=== PATIENT | female | born 1995 | race African-American/Black ===

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

== ENCOUNTER 2017-01-20 12:54 | Emergency (ER) | payer OTHER ==
--- NOTE | 2017-01-20 14:34 | PD ---
HPI Chief Complaint Abdominal pain Date Seen: Jan 20, 2017 Time Seen: 14:20 Travel History International Travel<30 Days: No Contact w/Intl Traveler<30Days: No Known Affected Area: No History of Present Illness HPI 22-year-old 1 para 0 at 37+ weeks gestation who comes today complaining of right abdominal pain. Patient indicates an area of maximal tenderness in the right lower quadrant. She denies any contractions, bleeding or vaginal discharge or fluid leakage. She has had no fever, nausea vomiting or change in bowel habits. No dysuria hematuria or frequency. She has not found any aggravating maneuvers nor has she found any alleviating components. She has taken no medication for this. Weeks Gestation: 37 Para: 0 : 1 History Past Medical History Medical History: Denies Significant Hx Obstetric History Obstetric History Primigravida This has been complicated by syphilis for which she has received treatment through the [facility]. Past Surgical History Surgical History: No Previous Surgery Family History Family History: positive for hypertension and diabetes in her parents Social History Alcohol Use: No Tobacco Use: No Substance Abuse: No Allergies-Medications (Allergen,Severity, Reaction): Coded Allergies: bee venom protein (honey bee) (Unverified Allergy, Mild, RASH, 01/08/17) Home Meds Active Scripts Lidocaine-Hydrocortisone 2.8-0.55% Topical (Lidocaine-Hydrocortisone 2.8-0.55% Topical) 1 Gel, 1 APPLIC EXTERNAL QID, #1 TUBE Prov:Deacon Malone MD R1 12/18/16 Vit W/ Ferric Phospha (Vitafol Gummies 3.33-0.333-34.8 mg) 1 Chw Chw, 1 CHEW PO DAILY, #60 BOTTLE 2 Refills Prov:Gely Miranda CNM SENIOR TECHNICAL MANAGER 10/09/16 Review of Systems Except as stated in HPI: all other systems reviewed are Neg Physical Exam Narrative GENERAL: Well-nourished, well-developed patient. SKIN: Warm and dry. HEAD: Normocephalic and atraumatic. EYES: No scleral icterus. No injection or drainage. ENT: No nasal drainage noted. Mucous membranes pink. Airway patent. NECK: Supple, trachea midline. No JVD. CARDIOVASCULAR: Regular rate and rhythm without murmurs, gallops, or rubs. RESPIRATORY: Breath sounds equal bilaterally. No accessory muscle use. BREASTS: Bilateral exam showed no masses , no retractions, no nipple discharge. ABDOMEN/GI: Abdomen soft, non-tender, bowel sounds present, no rebound, no guarding Gravid to [-] weeks size Fundal Height: [-40] GENITOURINARY: External Genitalia: intact and normal in appearance BUS glands: [-] Cervix: [-] Dilatation: [-Closed] Effacement: [50-] Station: [-2-] Presentation: [Vertex-] Membranes: [intact] Uterine Contractions: [None-] FHT's: Category: [-] Baseline: [-] Reactive: [Yes-] Variability: [-] Decels: [-] EXTREMITIES: No cyanosis or edema. BACK: Nontender without obvious deformity. No CVA tenderness. NEUROLOGICAL: Awake and alert. Motor and sensory grossly within normal limits. Five out of 5 muscle strength in all muscle groups. Normal speech. Data Data Vital Signs Reviewed: Yes MDM Medical Record Reviewed: Yes Narrative Course / MDM Assessment: 37+ week intrauterine with related discomfort without evidence of acute abdomen Plan: Follow for routine care. Diagnosis Diagnosis: Primary Impression: 37 weeks gestation of Additional Impression: Pelvic pain during in third trimester, antepartum Disposition: 01 DISCHARGE HOME Condition: Good Layton Rowland MD Jan 20, 2017 14:34
[2017-02-13] MEDS ORDERED: METR500T10 PO (15:09)
== END 2017-01-20 15:04 | disposition home or self-care (01) ==
LOC: HOBED 12:54
DX: R10.2 Pelvic and perineal pain (principal); Z3A.37 37 weeks gestation of pregnancy
CPT/HCPCS: 99283

== ENCOUNTER 2017-01-24 17:45 | Emergency (ER) | payer OTHER ==
--- NOTE | 2017-01-24 19:06 | PD ---
HPI Chief Complaint Ctx Travel History International Travel<30 Days: No Contact w/Intl Traveler<30Days: No Known Affected Area: No History of Present Illness HPI 22-year-old , IUP at 37.6 care complicated by obesity, scant care Patient presents to the OB ED complaining of painful contractions that started 1 hour ago. She reports that she just recently had intercourse. She denies any LOF or VB. She is unsure how often she is antonio as she has not been timing them. She reports good movement. She reports that she is not been off to the office for several weeks. She reports that she was seen here 4 days ago and her cervical exam was closed. Weeks Gestation: 37 Para: 0 : 1 History Past Medical History Narrative Medical Obesity Obstetric History Obstetric History 1 para 0 Past Surgical History Narrative Surgical Denies Family History Family History: Negative Social History Alcohol Use: No Tobacco Use: No Substance Abuse: No Allergies-Medications (Allergen,Severity, Reaction): Coded Allergies: bee venom protein (honey bee) (Unverified Allergy, Mild, RASH, 01/08/17) Home Meds Active Scripts Lidocaine-Hydrocortisone 2.8-0.55% Topical (Lidocaine-Hydrocortisone 2.8-0.55% Topical) 1 Gel, 1 APPLIC EXTERNAL QID, #1 TUBE Prov:Deacon Malone MD R1 12/18/16 Vit W/ Ferric Phospha (Vitafol Gummies 3.33-0.333-34.8 mg) 1 Chw Chw, 1 CHEW PO DAILY, #60 BOTTLE 2 Refills Prov:Gely Miranda CNM SHIP RIGGER APPRENTICE 10/09/16 Review of Systems Except as stated in HPI: all other systems reviewed are Neg Physical Exam Narrative GENERAL: Well-nourished, well-developed patient. SKIN: Warm and dry. HEAD: Normocephalic and atraumatic. EYES: No scleral icterus. No injection or drainage. ENT: No nasal drainage noted. Mucous membranes pink. Airway patent. NECK: Supple, trachea midline. No JVD. CARDIOVASCULAR: Regular rate and rhythm without murmurs, gallops, or rubs. RESPIRATORY: Breath sounds equal bilaterally. No accessory muscle use. BREASTS: Bilateral exam showed no masses , no retractions, no nipple discharge. ABDOMEN/GI: Abdomen soft, non-tender, bowel sounds present, no rebound, no guarding Gravid GENITOURINARY: External Genitalia: intact and normal in appearance. Normal BUS. No cervical or vaginal masses were noted. Normal rugated physiologic discharge were noted. Cervical exam 1/thick/high/posterior. Membranes are intact. On toco irregular contractions are noted FHT's: Category: FHR is category 1 tracing with reactive NST. Baseline 140s-150s with good accelerations noted no decelerations noted and moderate long-term variability EXTREMITIES: No cyanosis or edema. BACK: Nontender without obvious deformity. No CVA tenderness. NEUROLOGICAL: Awake and alert. Motor and sensory grossly within normal limits. Five out of 5 muscle strength in all muscle groups. Normal speech. Site: Grossly normal memory and affect Musculoskeletal: Grossly normal muscle strength, gait, and range of motion MDM Plan Assessment/plan: 1. IUP at 37.6 2. Contractions at term: No evidence of active labor with irregular contractions noted and cervical exam 1 thick and high strict labor precautions are given 3. Reassuring well-being: Reassuring testing was noted with a reactive NST and category 1 heart rate tracing. FHR was reassuring and appropriate for gestational age. FKC daily 4. Lapse of PNC: recommend f/u in 1-2d or sooner if needed 5. Obesity 6. F/U with primary Ob in 1-2d Diagnosis Diagnosis: Primary Impression: 37 weeks gestation of Additional Impression: False labor before 37 completed weeks of gestation Disposition: 01 DISCHARGE HOME Condition: Good Patient Instructions: Movement (ED), Early Labor Signs (ED) Tatyana Echevarria MD Jan 24, 2017 19:06
[2017-02-13] MEDS ORDERED: METR500T10 PO (15:09)
== END 2017-01-24 19:28 | disposition home or self-care (01) ==
LOC: HOBED 17:45
DX: O47.1 False labor at or after 37 completed weeks of gestation (principal); O99.213 Obesity complicating pregnancy, third trimester; Z3A.37 37 weeks gestation of pregnancy
CPT/HCPCS: 99283

== ENCOUNTER 2017-02-01 18:09 | Emergency (ER) | payer OTHER ==
--- NOTE | 2017-02-01 18:52 | PD ---
HPI Chief Complaint Contractions 1 hour Date Seen: Feb 01, 2017 Time Seen: 18:30 Travel History International Travel<30 Days: No Contact w/Intl Traveler<30Days: No Known Affected Area: No History of Present Illness HPI 22-year-old primigravida at 39 weeks gestation who reports having contractions for 1 hour. She denies any leakage of fluid, bleeding or vaginal discharge. She denies headache, visual change or abdominal pain. No significant change in her swelling. Weeks Gestation: 39 Para: 0 : 1 History Past Medical History Narrative Medical Treated for secondary syphilis this Obstetric History Obstetric History Primigravida, this , complicated by syphilis and infrequent care. Past Surgical History Surgical History: No Previous Surgery Family History Family History: Negative Social History Alcohol Use: No Tobacco Use: No Substance Abuse: No Allergies-Medications (Allergen,Severity, Reaction): Coded Allergies: bee venom protein (honey bee) (Unverified Allergy, Mild, RASH, 01/08/17) Home Meds Active Scripts Lidocaine-Hydrocortisone 2.8-0.55% Topical (Lidocaine-Hydrocortisone 2.8-0.55% Topical) 1 Gel, 1 APPLIC EXTERNAL QID, #1 TUBE Prov:Deacon Malone MD R1 12/18/16 Vit W/ Ferric Phospha (Vitafol Gummies 3.33-0.333-34.8 mg) 1 Chw Chw, 1 CHEW PO DAILY, #60 BOTTLE 2 Refills Prov:Gely Miranda CNM GENERATION MECHANIC HELPER 10/09/16 Review of Systems Except as stated in HPI: all other systems reviewed are Neg Physical Exam Narrative GENERAL: Well-nourished, well-developed patient. SKIN: Warm and dry. HEAD: Normocephalic and atraumatic. EYES: No scleral icterus. No injection or drainage. ENT: No nasal drainage noted. Mucous membranes pink. Airway patent. NECK: Supple, trachea midline. No JVD. CARDIOVASCULAR: Regular rate and rhythm without murmurs, gallops, or rubs. RESPIRATORY: Breath sounds equal bilaterally. No accessory muscle use. ABDOMEN/GI: Abdomen soft, non-tender, bowel sounds present, no rebound, no guarding Gravid to [-] weeks size Fundal Height: [-40] GENITOURINARY: External Genitalia: intact and normal in appearance BUS glands: [Negative-] Cervix: [-] Dilatation: [1-] Effacement: [-50] Station: [-2-] Presentation: [Vertex-] Membranes: [intact ] Uterine Contractions: [-Rare] FHT's: Category: [-1] Baseline: [-] Reactive: [Yes-] Variability: [-] Decels: [-] EXTREMITIES: No cyanosis or edema. BACK: Nontender without obvious deformity. No CVA tenderness. NEUROLOGICAL: Awake and alert. Motor and sensory grossly within normal limits. Five out of 5 muscle strength in all muscle groups. Normal speech. Data Data Vital Signs Reviewed: Yes Labs Urine dipstick trace proteinuria MDM Medical Record Reviewed: Yes Narrative Course / MDM Assessment: 39 week primigravida not in labor, isolated elevated blood pressure without other features of preeclampsia. Recheck blood pressure is normal. Plan: Labor precautions were reviewed. Patient was strongly encouraged follow- up for care visits which she has been poorly compliant with. Diagnosis Diagnosis: Primary Impression: 39 weeks gestation of Additional Impression: Irregular uterine contractions Disposition: DISCHARGE HOME Condition: Good Layton Rowland MD Feb 01, 2017 18:52
[2017-02-13] MEDS ORDERED: METR500T10 PO (15:09)
== END 2017-02-01 19:25 | disposition home or self-care (01) ==
LOC: HOBED 18:09
DX: O47.1 False labor at or after 37 completed weeks of gestation (principal); Z3A.39 39 weeks gestation of pregnancy
CPT/HCPCS: 59025

== ENCOUNTER 2017-02-15 20:28 | Inpatient (IN) | payer OTHER ==
[~2017-02-15] VITALS: Ht 175.3 cm; Wt 124.0 kg
[~2017-02-15 20:28] MED LIST changes: +METR500T10 PO
--- NOTE | 2017-02-15 20:50 | HHI.HP ---
HPI Chief Complaint Induction Date Seen: Feb 15, 2017 Travel History International Travel<30 Days: No Contact w/Intl Traveler<30Days: No History of Present Illness HPI Mrs. Nazario is a 22 y/o at 41/0 presenting for her scheduled induction. Patient endorses good movement and denies any vaginal bleeding, discharge , or fluid loss. She has been seen by the [facility] for her care which she reports has been uncomplicated. She was seen on 02/13 in the office and was treated for BV with Flagyl 1g daily for 2 days which she did not complete. She has been previously been treated for syphilis at [facility] on . Of note, per chart review patient has unknown GBS status. Weeks Gestation: 41 Para: 0 : 1 History Past Medical History Narrative Medical Anemia - on iron Medical History: Denies Significant Hx Obstetric History Obstetric History Past Surgical History Surgical History: No Previous Surgery Family History Family History: Negative Social History Alcohol Use: No Tobacco Use: No Substance Abuse: No Allergies-Medications (Allergen,Severity, Reaction): Coded Allergies: bee venom protein (honey bee) (Unverified Allergy, Mild, RASH, 02/13/17) Home Meds Active Scripts Metronidazole (Metronidazole) 500 Mg Tab, 1000 MG PO DAILY for Infection for 2 Days, #8 TAB 0 Refills Prov:Dillon Adorno MD 02/13/17 Lidocaine-Hydrocortisone 2.8-0.55% Topical (Lidocaine-Hydrocortisone 2.8-0.55% Topical) 1 Gel, 1 APPLIC EXTERNAL QID, #1 TUBE Prov:Deacon Malone MD R1 12/18/16 Vit W/ Ferric Phospha (Vitafol Gummies 3.33-0.333-34.8 mg) 1 Chw Chw, 1 CHEW PO DAILY, #60 BOTTLE 2 Refills Prov:Gely Miranda CNM 10/09/16 Review of Systems Except as stated in HPI: all other systems reviewed are Neg Physical Exam Narrative GENERAL: Well-nourished, well-developed patient. SKIN: Warm and dry. HEAD: Normocephalic and atraumatic. EYES: No scleral icterus. No injection or drainage. ENT: No nasal drainage noted. Mucous membranes pink. Airway patent. NECK: Supple, trachea midline. No JVD. CARDIOVASCULAR: Regular rate and rhythm without murmurs, gallops, or rubs. RESPIRATORY: Breath sounds equal bilaterally. No accessory muscle use. ABDOMEN/GI: Abdomen soft, non-tender, bowel sounds present, no rebound, no guarding Gravid to 41 GENITOURINARY: External Genitalia: intact and normal in appearance Cervix: [-] Dilatation: [-] Effacement: [-] Station: [-] Presentation: [-] Membranes: [intact or ruptured] Uterine Contractions: [-] FHT's: Category: [-] Baseline: [-] Reactive: [-] Variability: [-] Decels: [-] EXTREMITIES: No cyanosis or edema. BACK: Nontender without obvious deformity. No CVA tenderness. NEUROLOGICAL: Awake and alert. Motor and sensory grossly within normal limits. Five out of 5 muscle strength in all muscle groups. Normal speech. Caprini VTE Risk Assessment Caprini VTE Risk Assessment: Mod/High Risk (score >= 2) Caprini Risk Assessment Model Point Value = 1 Point Value = 2 Point Value = 3 Point Value = 5 Age 41-60 Minor surgery BMI > 25 kg/m2 Swollen legs Varicose veins or History of unexplained or recurrent spontaneous Oral contraceptives or hormone replacement Sepsis (< 1 month) Serious lung disease, including pneumonia (< 1 month) Abnormal pulmonary function Acute myocardial infarction Congestive heart failure (< 1 month) History of inflammatory bowel disease Medical patient at bed rest Age 61-74 Arthroscopic surgery Major open surgery (> 45 min) Laparoscopic surgery (> 45 min) Malignancy Confined to bed (> 72 hours) Immobilizing plaster cast Central venous access Age >= 75 History of VTE Family history of VTE Factor V Leiden Prothrombin [id number] Lupus anticoagulant Anticardiolipin antibodies Elevated serum homocysteine Heparin-induced thrombocytopenia Other congenital or acquired thrombophilia Stroke (< 1 month) Elective arthroplasty Hip, pelvis, or leg fracture Acute spinal cord injury (< 1 month) Prophylaxis Regimen Total Risk Factor Score Risk Level Prophylaxis Regimen 0-1 Low Early ambulation 2 Moderate Order ONE of the following: *Sequential Compression Device (SCD) *Heparin 5000 units SQ BID 3-4 Higher Order ONE of the following medications: *Heparin 5000 units SQ TID *Enoxaparin/Lovenox 40 mg SQ daily (WT < 150 kg, CrCl > 30 mL/min) *Enoxaparin/Lovenox 30 mg SQ daily (WT < 150 kg, CrCl > 10-29 mL/min) *Enoxaparin/Lovenox 30 mg SQ BID (WT < 150 kg, CrCl > 30 mL/min) AND/OR *Sequential Compression Device (SCD) 5 or more Highest Order ONE of the following medications: *Heparin 5000 units SQ TID (Preferred with Epidurals) *Enoxaparin/Lovenox 40 mg SQ daily (WT < 150 kg, CrCl > 30 mL/min) *Enoxaparin/Lovenox 30 mg SQ daily (WT < 150 kg, CrCl > 10-29 mL/min) *Enoxaparin/Lovenox 30 mg SQ BID (WT < 150 kg, CrCl > 30 mL/min) AND *Sequential Compression Device (SCD) Data Data Vital Signs Reviewed: Yes Assessment/Plan Problem List: (1) 41 weeks gestation of ICD Codes: Z3A.41 - 41 weeks gestation of Status: Acute Assessment and Plan Mrs. Nazario is a 22 y/o at 41/0 presenting for her scheduled induction 1. IUP at 41 weeks -Continue routine antepartum care -Encourage oral hydration -Continue vitamin -Patient admitted for scheduled induction, orders placed -Plan to start Cytotec overnight and transition to Oxytocin 2. GBS Unknown -Rapid GBS: ordered -NKDA 3. BV -Flagyl 500mg BID 4. Anemia -Patient reports she is on oral iron -H/H: pending 5. History of Syphilis -Patient with positive RPR and titer during -Patient treated by [facility] per patient and chart review -Nursery to be notified on delivery SDW: Dr. Trimble Discharge Planning Pending Clinical Course Uriah Kelsey MD R2 Feb 15, 2017 20:50
[2017-02-15] MEDS ORDERED: SODIUM CHLOR 0.9% 1000 ML INJ 1,000 ML OTHER PRN (21:08)
[2017-02-15] MEDS ORDERED: LACTATED RINGER'S 1000 ML INJ 1,000 ML IV PRN (21:08)
[2017-02-15] MEDS ORDERED: LIDOCAINE HCL 1% 50 ML VIAL INFIL PRN (21:15)
[2017-02-15] MEDS: SODIUM CHLORIDE 0.9% FLUSH 10 ML FLUSH IV FLUSH SCH (21:15)
[2017-02-15] MEDS ORDERED: LIDOCAINE HCL 1% 50 ML VIAL I-DERMAL PRN (21:15)
[2017-02-15] MEDS ORDERED: SODIUM CHLORID 0.9% 500 ML INJ 500 ML IV PRN (21:15)
[2017-02-15] MEDS ORDERED: MISOPROSTOL 25 MCG SUPP VAGINAL ONE (21:15)
[2017-02-15] MEDS ORDERED: CITRIC ACID-SODIUM CITRATE LIQ 30 ML UDC PO SCH (21:15)
[2017-02-15] MEDS ORDERED: MINERAL OIL 10 ML VIAL TOPICAL PRN (21:15)
[2017-02-15] MEDS ORDERED: SODIUM CHLORIDE 0.9% FLUSH 10 ML FLUSH IV FLUSH PRN (21:15)
[2017-02-15] MEDS ORDERED: OXYTOCIN 30 UNITS-500ML PREMIX 500 ML IV ONE (21:15)
[2017-02-15] MEDS ORDERED: ONDANSETRON HCL 4 MG/2 ML VIAL IV PRN (21:15)
[2017-02-15] MEDS ORDERED: SODIUM CHLOR 0.9% 1000 ML INJ 1,000 ML IV PRN (21:28)
[2017-02-15 22:09] LABS: BLOOD, URINE NEG (NEG); COMMENT (UR) CULT NOT INDICATED; CULTURE IF INDICATED CULT NOT INDICATED; GLUCOSE,URINE NEG (NEG); KETONE, URINE NEG (NEG); NITRITE,URINE NEG (NEG); SQUAMOUS EPITHELIAL CELL URINE 4 /hpf (0-5); URINE COLOR YELLOW (YELLW/STRAW)
[2017-02-15 22:20] LABS: BASOPHIL # 0.1 TH/MM3 (0-0.2); BASOPHIL % 0.6 % (0.0-2.0); EOSINOPHIL # 0.2 TH/MM3 (0-0.4); EOSINOPHIL % 1.7 % (0.0-4.0); HEMATOCRIT 33.6 % (35.0-46.0); HEMO FLAGS DIFF FINAL; LYMPH % 19.5 % (9.0-44.0); LYMPHOCYTE # 2.7 TH/MM3 (1.0-4.8); MEAN CELL VOLUME 73.9 FL (80.0-100.0); MEAN CORPUSCULAR HEMOGLOBIN 22.3 PG (27.0-34.0); MEAN CORPUSCULAR HGB CONC 30.2 % (32.0-36.0); NEUT % 73.2 % (16.0-70.0); PLATELET COUNT 216 TH/MM3 (150-450); RED BLOOD COUNT 4.55 MIL/MM3 (4.00-5.30); RED CELL DISTRIBUTION WIDTH 21.2 % (11.6-17.2); WHITE BLOOD COUNT 13.7 TH/MM3 (4.0-11.0)
[2017-02-15] MEDS: metroNIDAZOLE 500 MG TAB PO SCH (22:24)
[2017-02-15] MEDS: LACTATED RINGER'S 1000 ML INJ 1,000 ML IV SCH (22:24)
[2017-02-16] MEDS: MISOPROSTOL 25 MCG SUPP VAGINAL PRN ×2 (02:36→06:43)
--- NOTE | 2017-02-16 09:18 | PD.LABORPN ---
Subjective Subjective AROM -clear IUPC /FSE inserted cx 1-2/40/-3/vtx [ by US] FHR reactive CTXs seen continue induction for postdates Objective Objective Pelvic Exam: Cervix: [-] Dilatation: [-] Effacement: [-] Station: [-] Presentation: [-] Membranes: [intact or ruptured] Uterine Contractions: [-] FHT's: Category: [-] Baseline: [-] Reactive: [-] Variability: [-] Decels: [-] Weeks Gestation: 41 Gest Age Assessed Date: Feb 15, 2017 Gest Age Assessed Time: 18:00 Pt started active labor?: No Medical induction of labor?: Yes Medical induction start date: Feb 15, 2017 Medical induction start time: 18:00 Artificial rupture of membrane: Yes Artificial ROM date: Feb 16, 2017 Artifical ROM time: 09:00 Assessment/Plan Problem List: (1) 41 weeks gestation of ICD Codes: Z3A.41 - 41 weeks gestation of Status: Acute Cortez Trimble II, MD Feb 16, 2017 09:18
[2017-02-16] MEDS: metroNIDAZOLE 500 MG TAB PO SCH ×2 (09:34→21:50)
[2017-02-16] MEDS ORDERED: LACTATED RINGER'S 1000 ML INJ 1,000 ML IV ONE (12:00)
[2017-02-16] MEDS ORDERED: PHENYLEPH/NS 1000 MCG/10 ML SYR IV ONE (12:00)
[2017-02-16] MEDS ORDERED: LIDOCAINE 2%/EPINEPHrine PF 1:200,000 20ML SDV INFIL ONE (12:00)
[2017-02-16] MEDS ORDERED: ONDANSETRON HCL 4 MG/2 ML VIAL IV PUSH ONE (12:00)
[2017-02-16] MEDS ORDERED: MORPHINE SULFATE PF 5 MG/10 ML VIAL EPIDURAL ONE (12:00)
[2017-02-16] MEDS ORDERED: OXYTOCIN 10 UNIT/ML AMP IV ONE (12:00)
[2017-02-16] MEDS: LACTATED RINGER'S 1000 ML INJ 1,000 ML IV SCH ×3 (12:51→21:51)
--- NOTE | 2017-02-16 13:03 | PD.LABORPN ---
Subjective Subjective Patient is reporting painful contractions Objective Objective Pelvic Exam: SVE 2-3/90/-2 FHT's: The patient and her 140s with moderate long-term variability good accelerations and no repetitive decelerations although the patient is having some early's and an occasional mild variable, overall reassuring heart rate tracing Candor: Every 2-3 minutes Weeks Gestation: 41 Gest Age Assessed Date: Feb 16, 2017 Gest Age Assessed Time: 12:58 Pt started active labor?: Yes Active labor start date: Feb 16, 2017 Active labor start time: 12:58 Medical induction of labor?: Yes Medical induction start date: Feb 15, 2017 Medical induction start time: 20:00 Artificial rupture of membrane: Yes Artificial ROM date: Feb 16, 2017 Artifical ROM time: 09:15 Assessment/Plan Problem List: (1) 41 weeks gestation of ICD Codes: Z3A.41 - 41 weeks gestation of Status: Acute Assessment and Plan Assessment/plan: 1. IUP at 41.1 2. Induction of labor: Status post Cytotec, now on oxytocin 3. Overall reassuring heart tracing 4. GBS unknown Tatyana Echevarria MD Feb 16, 2017 13:03
[2017-02-16] MEDS ORDERED: fentaNYL 2MCG-BUPIV 0.125% INJ 100 ML ONE (14:18)
[2017-02-16] MEDS ORDERED: NO SYSTEM NARCOTICS PRN (15:00)
[2017-02-16] MEDS ORDERED: ePHEDrine/NS 25 MG/5 ML SYR IV PRN (15:00)
[2017-02-16] MEDS ORDERED: fentaNYL 2MCG-BUPIV 0.125% 100 ML EPIDURAL SCH (15:00)
[2017-02-16] MEDS ORDERED: DO NOT ADMINISTER ANTICOAGULANTS PRN (15:00)
[2017-02-16] MEDS ORDERED: TERBUTALINE INJ 1 MG/ML AMP ONE (15:41)
[2017-02-16] MEDS ORDERED: PENICILLIN G POTASSIUM INJ 5,000,000 UNITS in SODIUM CHLORIDE 0.9% INJ 100 ML IV ONE (18:15)
[2017-02-16] MEDS ORDERED: OXYTOCIN 30 UNITS-500ML PREMIX 500 ML IV SCH (19:30)
[2017-02-16] MEDS: SODIUM CHLORIDE 0.9% FLUSH 10 ML FLUSH IV FLUSH SCH (19:32)
[2017-02-16] MEDS ORDERED: ACETAMINOPHEN 1000 MG/100 ML 100 ML IV ONE (22:06)
--- NOTE | 2017-02-16 22:07 | HHI.PR ---
Subjective Remarks The patient is a 22-year-old with intrauterine at 41 weeks who presented for induction of labor. She has a history of syphilis. She underwent AROM this morning by Dr. Trimble at 1 cm 40% effaced and -3 station she progressed to 3-4 cm with adequate contractions but has had no further cervical change despite an adequate time period and augmentation with oxytocin. Also of note she has had 2 episodes of heart rate decelerations that spontaneously resolved. She is remote from delivery with currently reassuring heart rate tracing. The patient is in agreement with proceeding with delivery for failure to progress/arrest of dilation. This benefits alternatives to delivery were discussed with risks discussed including but not limited to pain, infection, bleeding, bleeding that might require blood transfusion or hysterectomy, need for repeat operation, injury to other organs like the bladder/bowel/nerves/vessels, injury to the baby, wound infection or breakdown, and other potential risks. The patient is in agreement, consent has been signed, and we will proceed. Objective Vital Signs Date Time Temp Pulse Resp B/P (MAP) Pulse Ox O2 Delivery O2 Flow Rate FiO2 02/16/17 20:51 16 Result Diagram: 02/15/17 2130 Tatyana Echevarria MD Feb 16, 2017 22:07
[2017-02-16] MEDS ORDERED: ceFAZolin INJ 1,000 MG VIAL ONE (22:09)
[2017-02-16] MEDS ORDERED: ceFAZolin 3,000 MG/NS 100 ML IV SCH ×2 (22:30)
[2017-02-16] MEDS ORDERED: METHYLERGONOVINE MALEATE 0.2 MG/ML VIAL ONE (22:50)
[2017-02-16] MEDS ORDERED: PENICILLIN G POTASSIUM INJ 2,500,000 UNITS in SODIUM CHLORIDE 0.9% INJ 100 ML IV SCH (23:00)
[2017-02-16] MEDS ORDERED: ceFAZolin 2 GM PREMIX 50 ML IV SCH (23:15)
[2017-02-16] MEDS ORDERED: MISOPROSTOL 200 MCG TAB ONE (23:17)
[2017-02-16] MEDS ORDERED: OXYTOCIN 30 UNITS-500ML PREMIX 500 ML ONE (23:26)
[2017-02-16] MEDS ORDERED: CITRIC ACID-SODIUM CITRATE LIQ 30 ML UDC PO SCH (23:45)
[2017-02-17] MEDS ORDERED: SODIUM CHLORIDE 0.9% FLUSH 10 ML FLUSH IV FLUSH PRN (00:45)
[2017-02-17] MEDS ORDERED: OXYTOCIN 30 UNITS-500ML PREMIX 500 ML IV ONE (00:45)
[2017-02-17] MEDS ORDERED: ACETAMINOPHEN 1000 MG/100 ML 100 ML IV ONE (00:45)
[2017-02-17] MEDS ORDERED: ZOLPIDEM TARTRATE 5 MG TAB PO PRN (00:45)
[2017-02-17] MEDS ORDERED: ACETAMINOPHEN 325 MG TAB PO PRN (00:45)
[2017-02-17] MEDS ORDERED: ONDANSETRON HCL 4 MG/2 ML VIAL IV PUSH PRN (00:45)
[2017-02-17] MEDS ORDERED: SIMETHICONE 80 MG CHEWABLE TAB PO PRN (00:45)
--- NOTE | 2017-02-17 01:29 | PD.OB.DELI ---
Procedure Note Section Procedure Performed by Tatyana Echevarria Procedure: Primary Low Transverse Sec Indication for delivery: Other (failure to progress, arrest of dilation) Previous condition: None Informed consent obtained: For anesthesia, For procedure Confirmed correct: Patient, Procedure, Site, Time-out taken Anesthesia: Epidural Medication prior to procedure: As documented in eMAR Monitoring during procedure: Blood pressure monitoring, manager leasing, doppler, monitor, Pulse oximetry Urinary catheter: Inserted using sterile technique, To dependent drainage, ml urine output (250cc clear) Sterile preparation: Other (ChloraPrep) Position: Supine with wedge to left side Operative Features Skin Incision: Pfannenstiel Uterine Incision: Low transverse w/knife / blunt ext Membranes Ruptured: Previously Presentation: Occiput posterior Delivery date: Feb 16, 2017 Delivery time: 22:38 Delivery of : Uneventful : Male One Minute : 8 Five Minute : 9 Weight: 3200 Status of : Viable, Cord blood Placenta delivered: Intact Medications: Antibiotics, Oxytocin, Ergot derivatives, Prostaglandins Estimated blood loss: 900cc Procedure tolerated: Well Maternal Condition: Stable Condition: Stable Procedure in detail See dictation. Tatyana Echevarria MD Feb 17, 2017 01:29
[2017-02-17] MEDS ORDERED: LACTATED RINGER'S 1000 ML INJ 1,000 ML IV SCH (05:35)
[2017-02-17] MEDS ORDERED: SODIUM CHLORIDE 0.9% FLUSH 10 ML FLUSH IV FLUSH SCH (09:00)
[2017-02-17] MEDS ORDERED: INFLUENZA VIRUS VACCINE (QUADRIVALENT) 0.5 ML SYR IM ONE (10:00)
--- NOTE | 2017-02-17 10:16 | MP ---
cc: TATYANA ECHEVARRIA MD DATE OF SURGERY: 02/16/2017 PREOPERATIVE DIAGNOSIS: 1. Intrauterine at 41.1. 2. Arrest of dilation/failure to progress. 3. Two episodes of intermittent decelerations and remote from delivery, although resolved. 4. Morbid obesity. 5. History of syphilis. POSTOPERATIVE DIAGNOSIS: 1. Intrauterine at 41.1. 2. Arrest of dilation/failure to progress. 3. Two episodes of intermittent decelerations and remote from delivery, although resolved. 4. Morbid obesity. 5. History of syphilis. 6. Occiput posterior. ATTENDING SURGEON: Dr. Tatyana Echevarria VISITOR INFORMATION ASSISTANT: Ana Tamez. PROCEDURE PERFORMED: Primary low transverse section with two layer closure, no extensions by Pfannenstiel skin incision. INDICATIONS: The patient is a 22 year-old 1, para 0, who was admitted for induction of labor. She progressed spontaneously to 3 to 4 cm dilated, however, made no further progression even with oxytocin. She had two episodes of several decelerations which resolved spontaneously, but had reassuring heart tone overall throughout her labor course as well as at the time of decision to proceed to the operating room. FINDINGS: A viable male , cephalic presentation/OP with Apgars 8 and 9, weighing 3200 grams. The patient had normal maternal anatomy with normal fallopian tubes, uterus and ovaries. SPECIMENS REMOVED. Placenta ESTIMATED BLOOD LOSS: 900 cc. URINE OUTPUT: 250 cc, clear urine at the end of the procedure. IV FLUIDS: 1300 cc, lactated Ringer's. PROCEDURE DESCRIPTION: After obtaining informed consent, the risks, benefits and alternatives, discussed at length including but not limited to pain, infection, bleeding, injury to organs such as bladder, bowel, nerves, vessels, injury to the baby, bleeding that may require blood transfusion or hysterectomy, need for repeat operation, wound infection breakdown, and other possible complications. The patient was taken to the operating room with reassuring heart sounds, IV fluids running and Mcdonnell catheter in place. Her epidural was redosed and upon arrival to the operating room, adequate anesthesia was confirmed, and reassuring heart tones were confirmed. The patient was placed in dorsal supine position with a leftward tilt and reassuring heart tones confirmed. After once again confirming adequate anesthesia, the patient was prepped and draped in normal sterile fashion. After time out procedure was performed, adequate anesthesia was once again confirmed and a Pfannenstiel skin incision was made with a scalpel and carried down to the level of the fascia with Bovie cautery. The fascia was nicked in the midline and the fascial incision extended laterally with curved King scissors. Darius clamps were applied to the superior aspect of the fascial incision and dissected off the underlying rectus muscles bluntly with the curved King scissors. The Darius clamps were applied to the inferior aspect of the fascial incision which was dissected off in a similar fashion. The rectus muscles were in the midline and the peritoneum entered bluntly. The peritoneum incision was extended bluntly. The Magno self-containing wound retractor was placed. The vesicouterine peritoneum identified, grasped with pickups and entered sharply with the Metzenbaum scissors. This incision was extended laterally and the bladder flap created digitally. The bladder blade was inserted and the lower uterine segment was tented with the Allis clamps and the lower uterine segment was carefully thinned out. A hysterotomy was created bluntly. The hysterotomy was extended bluntly. The vertex was elevated to the level of the hysterotomy and delivered atraumatically, followed by atraumatic delivery of the remainder of the . The was vigorous at delivery so cord clamping was delayed for 45 seconds. The cord was then doubly clamped and cut and the vigorous was passed off to the awaiting neonatology team. The placenta was removed manually and the uterus cleared of all clots and debris. The hysterotomy was repaired with #1 chromic in a running locked fashion. A second layer of the same suture was used in an imbricating fashion followed by an additional [id number] and box stitch after which excellent hemostasis was noted. The hysterotomy was reinspected and noted to be hemostatic. The Magno self-containing wound retractor was removed and the gutters were cleared of all clots and debris. The hysterotomy was once again reinspected and noted to be hemostatic. The peritoneum was reapproximated with 2-0 Vicryl in a running fashion. The rectus muscles were examined and noted to be hemostatic. The fascia was reapproximated with #1 Vicryl in a running fashion. The subcutaneous tissue was irrigated with warm normal saline and noted to be hemostatic. The fascia was noted to be without defect. The subcutaneous tissue was reapproximated with 2-0 Vicryl in an interrupted fashion. The skin edges were reapproximated with 3-0 Monocryl in a subcuticular fashion and a silver impregnated dressing placed. All sponge, lap and needle counts were correct x2. I performed the entire procedure myself. The patient was taken to the PACU in stable condition. Tatyana Echevarria MD [facility] /7:18 AM /9:45 AM
--- NOTE | 2017-02-17 10:19 | HHI.OB ---
Subjective Post Operative Day: 1 Remarks Pt seen and examined this morning. Post Operative day # 1 AFVSS overnight. Incision nondraining. Decreased lochia. Denies dysuria. No breast tenderness. She is feeding the baby via breast and bottle. Appetite good. No nausea or vomiting. Patient has not yet had a bowel movement or passed bowel gas. Ambulating well. Denies calf pain or shortness of breath. Otherwise, she is doing well this morning and has no other concerns. Objective Vitals/I&O Vital Signs Date Time Temp Pulse Resp B/P (MAP) Pulse Ox O2 Delivery O2 Flow Rate FiO2 02/16/17 20:51 16 Result Diagram: 02/15/170 Objective Remarks GENERAL: Well-nourished, well-developed patient. CARDIOVASCULAR: Regular rate and rhythm without murmurs, gallops, or rubs. RESPIRATORY: Breath sounds equal bilaterally. No accessory muscle use. ABDOMEN/GI: Abdomen soft, non-tender, bowel sounds present. Incision: Clean, dry and intact. Fundus: Firm, non-tender at umbilicus. GENITOURINARY: Light to moderate bleeding. EXTREMITIES: No cyanosis or edema, non-tender, without signs of DVT. Medications and IVs Current Medications Medications (Trade) Dose Ordered Sig/Agustin Route Start Time Stop Time Status Last Admin (Flagyl) 500 mg BID PO 02/15/17 21:45 02/16/17 21:50 Cefazolin Sodium 3000 mg/Sodium Chloride 130 ml @ 200 mls/hr ASSORTMENT PLANNER IV 02/16/17 22:30 02/20/17 22:29 Lactated Ringer's 1,000 ml @ 100 mls/hr Q10H IV 02/17/17 05:35 02/18/17 01:34 Oxytocin 500 ml @ 100 mls/hr UNSCH X1 PRN IV 02/17/17 10:45 02/18/17 10:44 (NS Flush) 2 ml BID IV FLUSH 02/17/17 09:00 (NS Flush) 2 ml UNSCH PRN IV FLUSH 02/17/17 00:45 (Mylicon Chew) 80 mg QID PRN PO 02/17/17 00:45 (Tylenol) 650 mg Q6H PRN PO 02/17/17 00:45 (Motrin) 600 mg Q6H PRN PO 02/17/17 00:45 (Percocet 5-325 Mg) 1 tab Q4H PRN PO 02/17/17 00:45 (Percocet 5-325 Mg) 2 tab Q4H PRN PO 02/17/17 00:45 (Josy-Colace) 2 tab Q12H PRN PO 02/17/17 00:45 (Ambien) 5 mg HS PRN PO 02/17/17 00:45 (M-M-R Ii Inj) 0.5 ml ONCE ONCE SQ 02/18/17 16:00 02/18/17 16:01 (Boostrix Inj) 0.5 ml ONCE ONCE IM 02/18/17 16:00 02/18/17 16:01 (Zofran Inj) 4 mg Q6H PRN IV PUSH 02/17/17 00:45 Assessment/Plan Problem List: (1) 41 weeks gestation of ICD Codes: Z3A.41 - 41 weeks gestation of Status: Acute (2) delivery delivered ICD Codes: O82 - Encounter for delivery without indication Status: Acute Assessment and Plan Mrs. Nazario is a 22 y/o G1 now P1 after uncomplicated section secondary to failure to progress 1. section -Continue routine care. -Percocet and Motrin PRN pain. -Encouraged OOB. Advised pelvic rest for 6 wks. patient will need follow-up appointment in 1 week for incision check. -Re: ctrl, she would like to discuss her options at her follow-up appointment. -Anticipate discharge in 1-2 days 2. BV -Flagyl 500mg BID 3. Anemia -Patient reports she is on oral iron -Postoperative H/H: Pending 4. History of Syphilis -Patient with positive RPR and titer during -Patient treated by [facility] per patient and chart review -Nursery to be notified on delivery SDW: Dr. Echevarria Discharge Planning 1-2 days Uriah Kelsey MD R2 Feb 17, 2017 10:18
[2017-02-17] MEDS ORDERED: OXYTOCIN 30 UNITS-500ML PREMIX 500 ML IV PRN (10:45)
[2017-02-17] MEDS: DOCUSATE SODIUM 50 MG/SENNA 8.6 MG TAB PO PRN (11:37)
[2017-02-17] MEDS: oxyCODONE/ACETAMINOPHEN 5 MG/325 MG TAB PO PRN (11:38)
[2017-02-17] MEDS: IBUPROFEN 600 MG TAB PO PRN (11:38)
[2017-02-17 12:09] VITALS: BP 121/84; PULSE 90; RESP 20; TEMP 98.4
[2017-02-17 17:35] VITALS: BP 118/65; PULSE 86; RESP 20; TEMP 97.9
[2017-02-18] MEDS: oxyCODONE/ACETAMINOPHEN 5 MG/325 MG TAB PO PRN ×4 (00:30→20:38)
[2017-02-18 05:55] LABS: AUTOMATED NEUTROPHIL # 9.6 TH/MM3 (1.8-7.7); BASOPHIL % 0.2 % (0.0-2.0); EOSINOPHIL # 0.1 TH/MM3 (0-0.4); EOSINOPHIL % 1.1 % (0.0-4.0); HEMATOCRIT 25.5 % (35.0-46.0); HEMO FLAGS DIFF FINAL; LYMPH % 13.7 % (9.0-44.0); LYMPHOCYTE # 1.7 TH/MM3 (1.0-4.8); MEAN CELL VOLUME 72.7 FL (80.0-100.0); MEAN CORPUSCULAR HEMOGLOBIN 22.7 PG (27.0-34.0); MEAN CORPUSCULAR HGB CONC 31.3 % (32.0-36.0); MONO % 5.8 % (0.0-8.0); NEUT % 79.2 % (16.0-70.0); PLATELET COUNT 203 TH/MM3 (150-450); RED BLOOD COUNT 3.51 MIL/MM3 (4.00-5.30); RED CELL DISTRIBUTION WIDTH 20.6 % (11.6-17.2); WHITE BLOOD COUNT 12.2 TH/MM3 (4.0-11.0)
[2017-02-18] MEDS: DOCUSATE SODIUM 50 MG/SENNA 8.6 MG TAB PO PRN (08:32)
[2017-02-18] MEDS: metroNIDAZOLE 500 MG TAB PO SCH ×3 (08:32→20:38)
[2017-02-18] MEDS: IBUPROFEN 600 MG TAB PO PRN ×3 (08:33→20:38)
--- NOTE | 2017-02-18 09:33 | HHI.OB ---
Subjective Post Operative Day: 2 Remarks Postoperative day number 2. AFVSS overnight. Pain well-controlled. Incision not draining. Decreased lochia. Denies dysuria. No breast tenderness. Appetite good. No nausea or vomiting. Endorses flatus. No bowel movement. Ambulating well. Denies calf pain, shortness of breath, or cough. Otherwise, she is doing well this morning and has no other complaints. Objective Vitals/I&O Vital Signs Date Time Temp Pulse Resp B/P (MAP) Pulse Ox O2 Delivery O2 Flow Rate FiO2 02/17/17 17:35 97.9 86 20 118/65 (82) 02/17/17 12:09 98.4 90 20 121/84 (96) Result Diagram: 02/18/17 0420 Objective Remarks GENERAL: Well-nourished, well-developed patient. CARDIOVASCULAR: Regular rate and rhythm without murmurs, gallops, or rubs. RESPIRATORY: Breath sounds equal bilaterally. No accessory muscle use. ABDOMEN/GI: Abdomen soft, non-tender, bowel sounds present. Incision: Clean, dry and intact. Fundus: Firm, non-tender at umbilicus. GENITOURINARY: Light to moderate bleeding. EXTREMITIES: No cyanosis or edema, non-tender, without signs of DVT. Medications and IVs Current Medications Medications (Trade) Dose Ordered Sig/[facility] Route Start Time Stop Time Status Last Admin (Flagyl) 500 mg BID PO 02/15/17 21:45 02/18/17 08:32 Cefazolin Sodium 3000 mg/Sodium Chloride 130 ml @ 200 mls/hr AMF MECHANIC IV 02/16/17 22:30 02/20/17 22:29 Oxytocin 500 ml @ 100 mls/hr UNSCH X1 PRN IV 02/17/17 10:45 02/18/17 10:44 (NS Flush) 2 ml BID IV FLUSH 02/17/17 09:00 02/18/17 08:42 (NS Flush) 2 ml UNSCH PRN IV FLUSH 02/17/17 00:45 (Mylicon Chew) 80 mg QID PRN PO 02/17/17 00:45 02/17/17 11:36 (Tylenol) 650 mg Q6H PRN PO 02/17/17 00:45 (Motrin) 600 mg Q6H PRN PO 02/17/17 00:45 02/18/17 08:33 (Percocet 5-325 Mg) 1 tab Q4H PRN PO 02/17/17 00:45 (Percocet 5-325 Mg) 2 tab Q4H PRN PO 02/17/17 00:45 02/18/17 08:33 (Josy-Colace) 2 tab Q12H PRN PO 02/17/17 00:45 02/18/17 08:32 (Ambien) 5 mg HS PRN PO 02/17/17 00:45 (M-M-R Ii Inj) 0.5 ml ONCE ONCE SQ 02/18/17 16:00 02/18/17 16:01 (Boostrix Inj) 0.5 ml ONCE ONCE IM 02/18/17 16:00 02/18/17 16:01 (Zofran Inj) 4 mg Q6H PRN IV PUSH 02/17/17 00:45 Assessment/Plan Problem List: (1) 41 weeks gestation of ICD Codes: Z3A.41 - 41 weeks gestation of Status: Acute (2) delivery delivered ICD Codes: O82 - Encounter for delivery without indication Status: Acute Assessment and Plan Mrs. Nazario is a 22 y/o G1 now P1 after uncomplicated section secondary to failure to progress 1. section -Continue routine care. -Percocet and Motrin PRN pain. -Encouraged OOB. Advised pelvic rest for 6 wks. patient will need follow-up appointment in 1 week for incision check. -Re: ctrl, she would like to discuss her options at her follow-up appointment. -Anticipate discharge in 1-2 days 2. BV -Flagyl 500mg BID 3. Anemia -Patient reports she is on oral iron -Postoperative Hgb: 8.0. -Likely continue iron on d/c 4. History of Syphilis -Patient with positive RPR and titer during -Patient treated by [facility] per patient and chart review -Nursery notified on delivery Discharge Planning 1-2 days Oral Jimenez MD, R2 Feb 18, 2017 09:33
[2017-02-18] MEDS ORDERED: DIPHTH/TETANUS/ACEL PERTUSSIS (BOOSTER) 0.5 ML VIAL/PFS IM ONE (16:00)
[2017-02-18] MEDS ORDERED: MEASLES, MUMPS, RUBELLA VACCINE 0.5 ML VIAL SQ ONE (16:00)
[2017-02-19 08:06] VITALS: BP 121/81; PULSE 93; RESP 16; TEMP 98.3
[2017-02-19] MEDS: metroNIDAZOLE 500 MG TAB PO SCH (08:11)
[2017-02-19] MEDS: oxyCODONE/ACETAMINOPHEN 5 MG/325 MG TAB PO PRN ×2 (08:11→12:12)
[2017-02-19] MEDS: IBUPROFEN 600 MG TAB PO PRN (08:11)
[2017-02-19] MEDS ORDERED: OXYC1TAB63 PO (08:24)
[2017-02-19] MEDS ORDERED: SENN1TAB PO (08:24)
[2017-02-19] MEDS ORDERED: IBUP-232 PO (08:24)
[2017-02-19] MEDS ORDERED: METR-1 PO (08:25)
--- NOTE | 2017-02-19 08:25 | HHI.DCPOC ---
Discharge Care Plan Diagnosis: (1) delivery delivered Report Symptoms to Your Doctor -Temperature above 100.5 degrees -Redness, of incision or excessive or foul smelling drainage -Unusual pain or calf pain -Increased vaginal bleeding -Painful or difficulty urinating -Feelings of extreme sadness or anxiety after 2 weeks Goals to Promote Your Health * To prevent worsening of your condition and complications * To maintain your health at the optimal level Directions to Meet Your Goals Take your medications as prescribed Follow your dietary instruction Follow activity as directed Ensure plenty of rest for recovery Drink fluids for hydration Keep your appointments as scheduled Take your immunizations and boosters as scheduled If your symptoms worsen call your PCP, if no PCP go to Urgent Care Center or Emergency Room Smoking is Dangerous to Your Health. Avoid second hand smoke Call the 24-hour crisis hotline for domestic abuse at Oral Jimenez MD, R2 Feb 19, 2017 08:25
== END 2017-02-19 17:47 | disposition home or self-care (01) | DRG 765 ==
LOC: H2EB 20:28 → H1EA 02-17 00:36
PROVIDERS: ADMIT Obstetrics & Gynecology Maternal & Fetal Medicine; ATTEND Obstetrics & Gynecology Maternal & Fetal Medicine
PROC: 3E0P7GC Introduction of Other Therapeutic Substance into Female Reproductive, Via Natural or Artificial Opening (ICD-10-PCS; 2017-02-15)
PROC: 10D00Z1 Extraction of Products of Conception, Low, Open Approach (ICD-10-PCS; principal; 2017-02-16)
PROC: 10907ZC Drainage of Amniotic Fluid, Therapeutic from Products of Conception, Via Natural or Artificial Opening (ICD-10-PCS; 2017-02-16)
PROC: 10H07YZ Insertion of Other Device into Products of Conception, Via Natural or Artificial Opening (ICD-10-PCS; 2017-02-16)
DX: O48.0 Post-term pregnancy (principal); O75.3 Other infection during labor; Z68.41 Body mass index [BMI] 40.0-44.9, adult; O99.214 Obesity complicating childbirth; D64.9 Anemia, unspecified; Z37.0 Single live birth; Z3A.41 41 weeks gestation of pregnancy; O99.02 Anemia complicating childbirth; E66.01 Morbid (severe) obesity due to excess calories; O62.1 Secondary uterine inertia; O32.4XX0 Maternal care for high head at term, not applicable or unspecified; O62.0 Primary inadequate contractions; N76.0 Acute vaginitis
CPT/HCPCS: 59025; 81001; 85025; 86592; 86593; 87150; J0131; J0690; J2210; J2274; J2370; J2405; J2540; J2590; J3010; J3105; J7120

== ENCOUNTER 2017-06-06 20:47 | Emergency (ER) | payer OTHER ==
[~2017-06-06] VITALS: Ht 172.7 cm; Wt 115.9 kg
[~2017-06-06 20:47] MED LIST changes: +IBUP-232 PO; -METR500T10 PO; -PREN1CHW7 PO; -[UNRECOGNIZED DRUG - CODE] EXTERNAL
[2017-06-06 20:49] VITALS: BP 141/84; PULSE 108; RESP 20; TEMP 99.2; O2SAT 98
--- NOTE | 2017-06-06 23:56 | PD ---
HPI Chief Complaint: Abdominal Pain Time Seen by Provider: 23:10 Travel History International Travel<30 days: No Contact w/Intl Traveler<30days: No Traveled to known affect area: No History of Present Illness HPI Patient is a 22-year-old female who gave 3 months ago it was a due to the fact her to progress during normal labor. No complications after that now for the last 2 days she's had epigastric left-sided pain burning and mild suprapubic pain. She denies dysuria her period has not returned it came back after 2 months after the delivery and then she had bleeding for 3 weeks which ended about 2 weeks ago. She is not having any bleeding at this time. Her main complaint is epigastric pain she cannot think of anything makes it better or worse she did not take anything to alleviate the pain in the ER she is in no acute distress and baby are bedside [facility] Past Medical History Anemia: Yes Autoimmune Disease: No Cardiovascular Problems: No Diminished Hearing: No Gastrointestinal Disorders: No Genitourinary: No Musculoskeletal: No Neurologic: No Psychiatric: No Respiratory: No Immunizations Current: Yes ?: Unknown LMP: 04/26/17 : 0 Past Surgical History Other Surgery: No Social History Alcohol Use: No Tobacco Use: No Substance Use: No Allergies-Medications (Allergen,Severity, Reaction): Coded Allergies: bee venom protein (honey bee) (Unverified Allergy, Mild, RASH, 04/17/17) Reported Meds & Prescriptions Reported Meds & Active Scripts Active Pepcid (Famotidine) 20 Mg Tab 20 Mg PO BID Ibuprofen 600 Mg Tab 600 Mg PO Q6H PRN Review of Systems Except as stated in HPI: all other systems reviewed are Neg Gastrointestinal: Positive: Nausea (epigastric and left upper quadrant.), Abdominal Pain Physical Exam Narrative GENERAL: No acute distress appears comfortable in the bed SKIN: Warm and dry. HEAD: Atraumatic. Normocephalic. EYES: Pupils equal and round. No scleral icterus. No injection or drainage. ENT: No nasal bleeding or discharge. Mucous membranes pink and moist. NECK: Trachea midline. No JVD. CARDIOVASCULAR: Regular rate and rhythm. RESPIRATORY: No accessory muscle use. Clear to auscultation. Breath sounds equal bilaterally. GASTROINTESTINAL: Abdomen tender in the upper gastrium and left upper and mild separate pain in the suprapubic area. nondistended. Hepatic and splenic margins not palpable. MUSCULOSKELETAL: Extremities without clubbing, cyanosis, or edema. No obvious deformities. NEUROLOGICAL: Awake and alert. No obvious cranial nerve deficits. Motor grossly within normal limits. Five out of 5 muscle strength in the arms and legs. Normal speech. PSYCHIATRIC: Appropriate mood and affect; insight and judgment normal. Data Data Last Documented VS Orders Orders Al-Mag Hy-Si 40-40-4 Mg/Ml Liq (Mag-Al P (06/07/17 00:00) Lidocaine 2% Viscous (Xylocaine 2% Visco (06/07/17 00:00) Urinalysis - C+S If Indicated (06/06/17 23:51) Ondansetron Odt (Zofran Odt) (06/07/17 00:00) Pantoprazole (Protonix) (06/07/17 02:15) Famotidine (Pepcid) (06/07/17 02:15) Ed Discharge Order (06/07/17 02:56) Labs Laboratory Tests Test 06/06/17 23:58 Urine Color YELLOW Urine Turbidity HAZY Urine pH 5.5 Urine Specific Carbon 1.023 Urine Protein TRACE mg/dL Urine Glucose (UA) NEG mg/dL Urine Ketones NEG mg/dL Urine Occult Blood NEG Urine Nitrite NEG Urine Bilirubin NEG Urine Urobilinogen LESS THAN 2.0 MG/DL Urine Leukocyte Esterase MOD Urine RBC 1 /hpf Urine WBC 6 /hpf Urine Squamous Epithelial Cells 4 /hpf Urine Bacteria RARE /hpf Urine Mucus FEW /lpf Microscopic Urinalysis Comment CULT NOT INDICATED MDM Medical Decision Making Medical Screen Exam Complete: Yes Emergency Medical Condition: Yes Differential Diagnosis Gastritis versus pelvic pain versus pancreatitis versus Narrative Course antiacids protonix pepcid and maalox lidocaine improved her pain , and feeling better d/c follow up p outpt gastriits Diagnosis Primary Impression: GERD (gastroesophageal reflux disease) Qualified Codes: K21.9 - Gastro-esophageal reflux disease without esophagitis Patient Instructions: Gastritis (ED), General Instructions Scripts Famotidine (Pepcid) 20 Mg Tab 20 MG PO BID, #20 TAB 0 Refills Prov: Jc Cruz MD 06/07/17 Jc Cruz MD Jun 06, 2017 23:56
[2017-06-07] MEDS ORDERED: ALUMINUM/MAGNESIUM/SIMETH 30 ML CUP PO ONE
[2017-06-07] MEDS ORDERED: ONDANSETRON ODT 4 MG TAB PO ONE
[2017-06-07] MEDS ORDERED: LIDOCAINE VISCOUS 2% SOLN 15 ML UDC PO ONE
[2017-06-07 00:13] LABS: BACTERIA, URINE RARE /hpf; BILIRUBIN, URINE NEG (NEG); BLOOD, URINE NEG (NEG); GLUCOSE,URINE NEG (NEG); KETONE, URINE NEG (NEG); MUCUS URINE FEW /lpf (OCC); NITRITE,URINE NEG (NEG); PH, URINE 5.5 (5.0-8.5); SQUAMOUS EPITHELIAL CELL URINE 4 /hpf (0-5); URINE COLOR YELLOW (YELLW/STRAW); URINE LEUKOCYTE ESTERASE MOD (NEG)
[2017-06-07] MEDS ORDERED: PANTOPRAZOLE SOD 40 MG DELAYED RELEASE TAB PO ONE (02:15)
[2017-06-07] MEDS ORDERED: FAMOTIDINE 20 MG TAB PO ONE (02:15)
[2017-06-07] MEDS ORDERED: FAMO1TAB37 PO (02:55)
== END 2017-06-07 03:25 | disposition home or self-care (01) ==
LOC: NEPC 20:47
DX: K21.9 Gastro-esophageal reflux disease without esophagitis (principal)
CPT/HCPCS: 81001; 99283

== ENCOUNTER 2017-07-08 13:56 | Emergency (ER) | payer OTHER ==
[~2017-07-08 13:56] MED LIST changes: +FAMO1TAB37 PO
[2017-07-08 13:59] VITALS: BP 126/72; PULSE 78; RESP 16; TEMP 98.2; O2SAT 100
--- NOTE | 2017-07-08 14:26 | PD ---
HPI Chief Complaint: Injury Time Seen by Provider: 14:21 Travel History International Travel<30 days: No Contact w/Intl Traveler<30days: No Traveled to known affect area: No History of Present Illness HPI 22-year-old female here with right foot pain. Symptoms started 1 week ago. Pain is an aching pain in the right forefoot which is constant and worse on walking. She does report that she has been walking more for exercise and at work. She denies any trauma. She has not been using any medication for symptom relief. She has no other complaints at this time. [facility] Past Medical History Anemia: Yes Autoimmune Disease: No Cardiovascular Problems: No Diminished Hearing: No Gastrointestinal Disorders: No Genitourinary: No Musculoskeletal: No Neurologic: No Psychiatric: No Respiratory: No Immunizations Current: Yes : 1 Para: 1 Past Surgical History Other Surgery: No Social History Alcohol Use: No Tobacco Use: No Substance Use: No Allergies-Medications (Allergen,Severity, Reaction): Coded Allergies: bee venom protein (honey bee) (Unverified Allergy, Mild, RASH, 07/08/17) Reported Meds & Prescriptions Reported Meds & Active Scripts Active Review of Systems Musculoskeletal: Positive: Pain Skin: Positive Other (denies open wounds) Physical Exam Narrative GENERAL: Well-nourished female in no acute distress SKIN: Warm and dry. HEAD: Atraumatic. Normocephalic. EYES: Pupils equal and round. No scleral icterus. No injection or drainage. ENT: No nasal bleeding or discharge. Mucous membranes pink and moist. NECK: Trachea midline. No JVD. CARDIOVASCULAR: Regular rate and rhythm. No murmur appreciated. RESPIRATORY: No accessory muscle use. Clear to auscultation. Breath sounds equal bilaterally. MUSCULOSKELETAL: Generalized tenderness to palpation of the right foot. There is no obvious deformity. Distal pulses, sensation preserved. Pain with range of motion of the right foot. NEUROLOGICAL: Awake and alert. No obvious cranial nerve deficits. Motor grossly within normal limits. Normal speech. Data Data Last Documented VS Vital Signs Date Time Temp Pulse Resp B/P (MAP) Pulse Ox O2 Delivery O2 Flow Rate FiO2 07/08/17 13:59 98.2 78 16 126/72 (90) 100 Orders Orders Foot, Complete ([id number]) (07/08/17 ) Ed Discharge Order (07/08/17 15:31) [facility] Medical Decision Making Medical Screen Exam Complete: Yes Emergency Medical Condition: Yes Medical Record Reviewed: Yes Differential Diagnosis Tendinitis, strain, stress fracture of the metatarsal Narrative Course X-ray imaging is unremarkable. Most likely right foot strain. Stable for discharge. Diagnosis Primary Impression: Right foot strain Additional Instructions: Avoid strenuous activity. Tylenol or Motrin for pain. Follow-up with primary care physician. Return for any emergent medical conditions. Med/Other Pt SpecificInfo: No Change to Meds Disposition: 01 DISCHARGE HOME Condition: Stable Juan Gonzalez Jul 08, 2017 14:26
--- NOTE | 2017-07-08 15:17 | RADRPT ---
EXAM DATE/TIME: 07/08/2017 14:41 [place] COMPARISON: No previous studies available for comparison. INDICATIONS : Right foot pain for 1 week; no known injury. MEDICAL HISTORY : None. SURGICAL HISTORY : None. ENCOUNTER: Initial ACUITY: 1 week PAIN SCORE: 10/10 LOCATION: Right dorsal foot. FINDINGS: Three view examination of the right foot demonstrates no soft tissue swelling, dislocation, or fractu re. The tarsal bones appear intact. The interphalangeal and metatarsophalangeal joints are intact. The calcaneus is intact. Bony mineralization is normal. Small well-corticated accessory ossificati ons adjacent to the cuboid and navicular. CONCLUSION: No acute osseous injury. Karthikeyan Beltran MD on July 08, 2017 at 15:13 Board Certified Radiologist. This report was verified electronically.
== END 2017-07-08 15:43 | disposition home or self-care (01) ==
LOC: NEPK 13:56
DX: S96.911A Strain of unspecified muscle and tendon at ankle and foot level, right foot, initial encounter (principal); Y93.01 Activity, walking, marching and hiking
CPT/HCPCS: 73630; 99283